=== PATIENT | female | born 1950 ===

== ENCOUNTER 2020-09-30 07:46 | Day surgery (SDC) | payer OTHER | END 2020-09-30 13:35 | disposition home or self-care (01) | LOC: AMB-ENDOS 07:46 | PROVIDERS: ATTEND Colon & Rectal Surgery | DX: D12.2 Benign neoplasm of ascending colon (principal); K64.1 Second degree hemorrhoids; Z20.822 Contact with and (suspected) exposure to COVID-19; Z12.11 Encounter for screening for malignant neoplasm of colon ==

== ENCOUNTER 2021-10-17 21:01 | Emergency (ER) | payer OTHER ==
[~2021-10-17] VITALS: Ht 154.9 cm; Wt 58.1 kg
[2021-10-17] MEDS ORDERED: LOSARTAN POTASS25 MG (23:31)
== END 2021-10-18 13:50 | disposition home or self-care (01) ==
LOC: ER 21:01
DX: M79.662 Pain in left lower leg (principal); Z88.2 Allergy status to sulfonamides; I10 Essential (primary) hypertension